=== PATIENT | female | born 1990 | race Native Hawaiian/Other Pacific Islander ===

== ENCOUNTER 2018-12-30 08:44 | Outpatient (CLI) | payer OTHER ==
[2018-12-30 09:04] LABS: PLATELET COUNT 344 K/uL (152-353)
[2018-12-30 09:48] LABS: POTASSIUM 4.2 mmol/L (3.6-5.2)
== END 2018-12-30 20:40 | disposition home or self-care (01) ==
LOC: LABW 08:44
PROVIDERS: Nurse Practitioner
DX: R53.82 Chronic fatigue, unspecified (principal); R63.5 Abnormal weight gain
CPT/HCPCS: 36415; 80053; 82306; 82607; 83036; 83540; 83550; 84439; 84443; 85027

== ENCOUNTER 2019-05-06 19:47 | Emergency (ER) | payer OTHER ==
[~2019-05-06] VITALS: Ht 170.2 cm; Wt 116.1 kg
[2019-05-06 19:55] VITALS: BP 148/80
[2019-05-06] MEDS ORDERED: BUSPIRONE5 MG PO (20:11)
[2019-05-06] MEDS ORDERED: LEXAPRO20 MG PO (20:11)
[2019-05-06 21:19] VITALS: TEMP 98.1
== END 2019-05-06 21:29 | disposition home or self-care (01) ==
LOC: ED 19:47
DX: J02.0 Streptococcal pharyngitis (principal); R50.9 Fever, unspecified; F17.210 Nicotine dependence, cigarettes, uncomplicated
CPT/HCPCS: 87502; 87651; 99282; 99283

== ENCOUNTER 2020-09-28 09:58 | Outpatient (CLI) | payer OTHER ==
[~2020-09-28 09:58] MED LIST: BUSPIRONE5 MG PO; LEXAPRO20 MG PO
[2020-09-28 10:27] LABS: PLATELET COUNT 402 K/uL (152-353)
[2020-09-28 10:46] LABS: POTASSIUM 3.7 mmol/L (3.6-5.2)
== END 2020-09-28 19:58 | disposition home or self-care (01) ==
LOC: RAD 09:58
PROVIDERS: ATTEND Nurse Practitioner Family
DX: R06.00 Dyspnea, unspecified (principal)
CPT/HCPCS: 36415; 80053; 85027; 85379

== ENCOUNTER 2022-05-06 11:33 | Outpatient (CLI) | payer OTHER | END 2022-05-06 19:27 | disposition home or self-care (01) | LOC: RAD 11:33 | PROVIDERS: ATTEND Nurse Practitioner Family | DX: R22.1 Localized swelling, mass and lump, neck (principal) ==